=== PATIENT | female | born 1980 | race Asian ===

== ENCOUNTER 2018-08-11 06:40 | Day surgery (SDC) | payer OTHER ==
[2018-07-28 14:28] VITALS: BMI 22.3
--- NOTE | 2018-08-05 09:03 | HP ---
Admitting History and Physical - Primary Care Physician PCP: Frederick Shanks - Admission Chief Complaint: Right breast cancer History of Present Illness: 38 year old premenapausal female with screening mammogram showing dense breast tissue . follow up US showed 4mm hypoechoic nodule in right breast at 1:00 3 cm FN. 06/2018 Right breast US core bx revealed ER/SD+/HER2 -, invasive ductal carcinoma. Breast MRI showed right known breast cancer ,no adenopathy and an enhancement probably benign birad 3,complex cyst on targeted US. , left breast negative . Genetic test negative. History Source: Patient Limitations to Obtaining History: No Limitations - Past Medical History ...LMP: 07/01/18 ...: No - Past Surgical History Past Surgical History: Yes: None, Tubal Ligation (2014) - Advance Directives Advance Directives: Yes: Health Care Proxy - Smoking History Smoking history: Former smoker Have you smoked in the past 12 months: No If you are a former smoker, when did you quit?: MANY YEARS AGO - Alcohol/Substance Use Hx Alcohol Use: Yes (RARELY) - Social History History of Recent Travel: No Home Medications - Allergies Allergies/Adverse Reactions: Allergies Allergy/AdvReac Type Severity Reaction Status Date / Time asparagus Allergy Severe ANAPHYLACTI Verified 07/28/18 14:18 C No Known Drug Allergies Allergy Verified 09/19/13 11:56 - Home Medications Home Medications: Ambulatory Orders NK [No Known Home Medication] 07/28/18 Family Disease History - Family Disease History Family Disease History: CA: Father (prostate ca 68) Physical Examination Constitutional: Yes: Well Nourished Breast(s): Yes: Other (diffusely nodular and dense no palpable masses or adenopathy Right breast post bx changes) Problem List - Problems (1) Breast cancer, right breast Code(s): C50.911 - MALIGNANT NEOPLASM OF UNSP SITE OF RIGHT FEMALE BREAST Qualifiers: Breast location: upper inner quadrant of breast Estrogen receptor status: positive Patient sex: female Qualified Code(s): C50.211 - Malignant neoplasm of upper-inner quadrant of right female breast; Z17.0 - Estrogen receptor positive status [ER+] Assessment/Plan Right breast wide excision mammogram needle localization, lymphoscintogram snetenl node biopsy possible axillary dissection
[2018-08-11] MEDS ORDERED: MIDAZOLAM HCL 2 MG/2 ML SINGLE DOSE VIAL ONE (11:40)
[2018-08-11] MEDS ORDERED: PROPOFOL 20 ML ONE (11:40)
[2018-08-11] MEDS ORDERED: ISOSULFAN BLUE 10 MG/ML VIAL SQ ONE (11:56)
[2018-08-11] MEDS ORDERED: BUPIVACAINE HCL/PF 2.5 MG/ML - 30 ML VIAL IJ ONE (11:56)
[2018-08-11] MEDS ORDERED: ONDANSETRON 4 MG/2 ML VIAL ONE ×2 (12:25→13:17)
[2018-08-11] MEDS ORDERED: ceFAZolin SODIUM 1 GM VIAL ONE (12:25)
[2018-08-11] MEDS ORDERED: DEXAMETHASONE SOD PHOSPHATE 4 MG/1 ML VIAL ONE (12:25)
[2018-08-11] MEDS ORDERED: KETOROLAC TROMETHAMINE 30 MG/1 ML VIAL ONE (12:49)
[2018-08-11] MEDS ORDERED: BUPIVACAINE HCL/PF 0.25% (2.5MG/ML) 10 ML VIAL IJ ONE (13:15)
[2018-08-11] MEDS ORDERED: GUM MASTIC/STORAX/MSAL/ALCOHOL 1 DRP DROPSBTL MC ONE (13:30)
[2018-08-11] MEDS ORDERED: oxyCODONE HCL 5 MG TABLET PO PRN (13:46)
[2018-08-11] MEDS ORDERED: ONDANSETRON 4 MG/2 ML VIAL IVPUSH PRN ×2 (13:46→13:47)
[2018-08-11] MEDS ORDERED: KETOROLAC TROMETHAMINE 30 MG/1 ML VIAL IVPUSH PRN (13:47)
[2018-08-11] MEDS ORDERED: LACTATED RINGERS SOLUTION 1,000 ML IV SCH (14:00)
[2018-08-11] MEDS ORDERED: DEXTROSE 5%-0.45% SALINE 1,000 ML IV SCH (14:00)
[2018-08-11 14:01] VITALS: TEMP 98.2
[2018-08-11 15:36] VITALS: PULSE 62
[2018-08-11 16:22] VITALS: BP 111/64
--- NOTE | 2018-08-11 21:21 | OP ---
DATE OF OPERATION: 08/11/2018 PREOPERATIVE DIAGNOSIS: Right breast cancer. POSTOPERATIVE DIAGNOSIS: Right breast cancer. PROCEDURE: Right mammographically localized partial mastectomy with complex tissue transfer and sentinel node biopsy. ANESTHESIA: General intubated. ATTENDING SURGEON: Johnny Cardenas MD RETAIL MERCHANDISING SPECIALIST: RUFUS Landeros ESTIMATED BLOOD LOSS: Minimal. COMPLICATIONS: None. DESCRIPTION OF PROCEDURE: The patient was made aware of the risks and benefits of the procedure and consented. She was placed in a supine position after going to Radiology where a needle was placed next to the index lesion as well as nuclear medicine where radioactive tracer was placed into the right tumoral tissue. After general anesthesia was induced, the patient was intubated. Then 2.5 mL of 1% Isosulfan Blue was locally infiltrated into the peritumoral tissues. The operative site was prepped and draped in the usual sterile fashion. Waiting approximately 10 minutes with gently manual compression, a curvilinear incision was made in the right axilla. Using blunt and sharp dissection, tissues were dissected downward. A cluster of blue and hot lymph nodes were identified and surgically excised and submitted to Pathology. Interrogation of the axilla revealed no suspicious nodes and no palpable nodes. The wound was then closed with deep 3-0 Vicryl followed by a running subcuticular 4-0 Monocryl. The breast was then approached. A periareolar incision was then made using electrocautery. Thick skin flaps were raised to the needle. The needle was drawn through the puncture site and a wire through the bone. Tissues around the wire were then sharply excised and submitted with a short suture superior, long suture lateral. Specimen radiograph confirmed the presence of the indexed lesion. The specimen was then submitted to Pathology. Additional segments were taken deep anterior, medial, lateral, superior, inferior with clips at the new margin. The wound was copiously irrigated with normal saline. Hemostasis maintained by electrocautery. Using electrocautery, the breast tissue was taken off the pectoralis muscle and approximately 6-8 cm in each direction rotated into the defect. This was then closed with interrupted [id number] sutures of 3-0 Vicryl closing the defect. The wound was then closed with deep 3-0 Vicryl followed by a running subcuticular 4-0 Monocryl. The surgical areas were then injected with 0.5% bupivacaine. The incisions were then dressed with Steri-Strips, sterile dressing, and a compression bra. The patient having tolerated the procedure well was transferred to the recovery room in excellent condition. JOHNNY MIN M.D. [id number]
--- NOTE | 2018-08-17 10:01 | PATH ---
Surgical Pathology Report Patient Name: TL WEEKS [facility]. Rec. #: [id number] /Age/Gender: 1980 (Age: 38) / F Account: [id number] [facility] Taken: 08/11/2018 Received: 08/11/2018 Reported: 08/17/2018 Physicians: Frederick Shanks M.D. Specimen(s) Received A: RIGHT AXILLARY SENTINEL NODES B: RIGHT BREAST WIDE EXCISION C: RIGHT BREAST ANTERIOR MARGIN D: RIGHT BREAST MEDIAL MARGIN E: RIGHT BREAST LATERAL MARGIN F: RIGHT BREAST SUPERIOR MARGIN G: RIGHT BREAST INFERIOR MARGIN Clinical History Right breast CA Final Diagnosis A. LYMPH NODES, RIGHT AXILLARY SENTINEL, EXCISION: TWO LYMPH NODES, NEGATIVE FOR METASTATIC CARCINOMA (0/2). B. BREAST, RIGHT, WIDE EXCISION: INVASIVE DUCTAL CARCINOMA, MODERATELY DIFFERENTIATED WITH LOBULAR GROWTH FEATURES (TUBULE SCORE: 3/3, NUCLEAR GRADE: 2/3, MITOTIC SCORE: 1/3, TOTAL SCORE: 6/9; ANGELIQUE GRADE 2). (SEE NOTE) INVASIVE CARCINOMA MEASURES 6 MM IN GREATEST DIMENSION, MICROSCOPICALLY. FOCAL DUCTAL CARCINOMA IN SITU (DCIS), SOLID TYPE, LOW NUCLEAR GRADE. INVASIVE CARCINOMA AND DCIS ARE CLOSE TO (< 1MM) THE INFERIOR MARGIN. SEE SPECIMENS C-G FOR FINAL MARGINS. NO LYMPHOVASCULAR INVASION IS IDENTIFIED. PRIOR BIOPSY SITE CHANGES ARE PRESENT. PATHOLOGIC STAGE (pTNM): pT1b pN0. SEE ALSO INVASIVE CARCINOMA CASE SUMMARY BELOW. Note: The carcinoma shows strong membranous positivity for E-cadherin (performed at [facility], [place], [place]; [id number]) which supports ductal phenotype. C. BREAST, RIGHT, ANTERIOR MARGIN, EXCISION: BENIGN BREAST TISSUE. D. BREAST, RIGHT, MEDIAL MARGIN, EXCISION: BENIGN BREAST TISSUE. E. BREAST, RIGHT, LATERAL MARGIN, EXCISION: FOCAL ATYPICAL DUCTAL HYPERPLASIA (ADH). F. BREAST, RIGHT, SUPERIOR MARGIN, EXCISION: BENIGN BREAST TISSUE. G. BREAST, RIGHT, INFERIOR MARGIN, EXCISION: BENIGN BREAST TISSUE. Comments Breast Invasive Carcinoma: Surgical Pathology Case Summary (Based on AJCC TNM 8 th edition) Procedure _X_ Excision (less than total mastectomy) Specimen Laterality _X_ Right Tumor Size _X_ Greatest dimension of largest invasive focus: 6 mm Histologic Type _X_ Invasive carcinoma with lobular features Histologic Grade (Angelique Histologic Score) Glandular (Acinar)/Tubular Differentiation _X_ Score 3 (<10% of tumor area forming glandular/tubular structures) Nuclear Pleomorphism _X_ Score 2 Mitotic Rate _X_ Score 1 Overall Grade _X_ Grade 2 (scores of 6 or 7) Tumor Focality _X_ Single focus of invasive carcinoma Ductal Carcinoma In Situ (DCIS) _X_ DCIS is present in specimen _X_ Negative for extensive intraductal component (EIC) Margins Invasive Carcinoma Margins _X_ Uninvolved by invasive carcinoma Distance from closest margin (millimeters): < 1 mm from inferior margin in wide excision B. Final inferior margin G is negative for carcinoma. DCIS Margins _X_ Uninvolved by DCIS Distance from closest margin (millimeters): < 1 mm from inferior margin in wide excision B. Final inferior margin G is negative for DCIS. Regional Lymph Nodes Number of Lymph Nodes with Macrometastases (>2 mm): 0 Number of Lymph Nodes with Micrometastases (>0.2 mm to 2 mm and/or >200 cells):0 Number of Lymph Nodes with Isolated Tumor Cells (=0.2 mm and =200 cells):0 Number of Lymph Nodes Examined: 2 Number of [place] Nodes Examined : 2 Treatment Effect _X_ No known presurgical therapy Lymphovascular Invasion _X_ Not identified Pathologic Stage Classification (pTNM, AJCC 8th Edition) Primary Tumor (Invasive Carcinoma) (pT) _X_ pT1b: Tumor >5 mm but =10 mm in greatest dimension Regional Lymph Nodes (pN) Category (pN) _X_ pN0 (sn): No regional lymph node metastasis identified or ITCs only Biomarker Studies Results of ER, KS, Her2 (IHC) & Ki-67 studies performed on this specimen (block B1) at [place], [place] ( [id number]) are as follows: ER (clone [id number] mouse monoclonal antibody by [employer]) : >95 % nuclear staining with strong intensity (Positive). KS (clone16 mouse monoclonal antibody by [employer]): 90 % nuclear staining with strong intensity (Positive). Her2 IHC (EP3 from [employer], formerly known as [id number], using [employer] Polymer Refine detection kit): 0 (Negative). Ki67: ~10% (low proliferative index). Positive and negative controls (internal if applicable) show appropriate results. Formalin fixation and cold ischemic times are within current ASCO/CAP recommendations for ER, KS and Her2 testing. Electronically Signed Izabela Gay M.D. Gross Description A. Received in formalin labeled "right axillary sentinel nodes," are 2 lymph nodes measuring 0.3 and 2.5 cm in greatest dimension. The larger lymph node is bisected and the specimen is entirely submitted in 3 cassettes as follows: 1-one whole lymph node; 2-3-one bisected lymph node. B. Received in formalin, labeled "right breast wide excision," is a 3.9 x 3.0 x 2.1 cm. galvan-yellow, irregular, portion of fibroadipose tissue with a needle localization wire present. There is a short suture marking the superior aspect and a long suture marking the lateral aspect, per the surgeon. There is no skin present. The specimen is inked as follows: superior and lateral blue; inferior green; medial yellow; anterior red; deep black. The specimen is serially sectioned from lateral to medial. Sectioning reveals a 0.7 x 0.5 x 0.5 cm galvan, ill-defined, firm mass at 0.1 cm from the inferior margin and 0.3 cm from the deep margin. Button Breaker Operator sections are submitted in 5 cassettes as follows: 1-full-face section of mass with superior, inferior, anterior and deep margins; [id number] surrounding mass, each with superior, inferior, anterior and deep margins; 4-lateral margin; 5-medial margin. Time to formalin fixation: 18 minutes Total formalin fixation time: Approximately 29 hours. C. Received in formalin labeled "right breast anterior margin," is a 3.0 x 2.1 x 1.0 cm portion of fibroadipose tissue with a clip marking the new margin, per the surgeon. The new margin is inked blue and the specimen is serially sectioned. The specimen is entirely and sequentially submitted in 5 cassettes. D. Received in formalin labeled "right breast medial margin," is a 2.8 x 2.1 x 0.6 cm portion of fibroadipose tissue with a clip marking the new margin, per the surgeon. The new margin is inked blue and the specimen is serially sectioned. The specimen is entirely submitted in 3 cassettes. E. Received in formalin labeled "right breast lateral margin," is a 2.3 x 1.6 x 1.0 cm portion of fibroadipose tissue with a clip marking the new margin, per the surgeon. The new margin is inked blue and the specimen is serially sectioned. The specimen is entirely submitted in 3 cassettes. F. Received in formalin labeled "right breast superior margin," is a 2.5 x 2.0 x 0.7 cm portion of fibroadipose tissue with a clip marking the new margin, per the surgeon. The new margin is inked blue and the specimen is serially sectioned. The specimen is entirely admitted in 3 cassettes. G. Received in formalin labeled "right breast inferior margin," is a 3.3 x 2.6 x 1.2 cm portion of fibroadipose tissue with a clip marking the new margin, per the surgeon. The new margin is inked blue and the specimen is serially sectioned. The specimen is entirely and sequentially submitted in 6 cassettes. 08/12/2018 [facility]08/12/2018
== END 2018-08-11 16:25 | disposition home or self-care (01) ==
LOC: FASU 06:40
PROVIDERS: ATTEND Surgery Surgical Oncology
PROC: 0HBT0ZZ Excision of Right Breast, Open Approach (ICD-10-PCS; principal; 2018-08-11 12:33)
PROC: 0HRT07Z Replacement of Right Breast with Autologous Tissue Substitute, Open Approach (ICD-10-PCS; 2018-08-11 12:33)
DX: C50.211 Malignant neoplasm of upper-inner quadrant of right female breast (principal); Z17.0 Estrogen receptor positive status [ER+]
CPT/HCPCS: 19281; 78195-TC; 84703; 88307-TC; 94760; A9541

== ENCOUNTER 2021-05-17 04:32 | Day surgery (SDC) | payer BC, OTHER ==
[2021-05-17 08:26] VITALS: BMI 23.8
[2021-05-17 09:38] VITALS: TEMP 97
[2021-05-17 12:02] VITALS: BP 103/58; PULSE 73
== END 2021-05-17 10:35 | disposition home or self-care (01) ==
LOC: JASU-ENDO 04:32
PROVIDERS: ATTEND Internal Medicine Gastroenterology
PROC: 0DBL8ZX Excision of Transverse Colon, Via Natural or Artificial Opening Endoscopic, Diagnostic (ICD-10-PCS; 2021-05-17)
PROC: 0DBM8ZX Excision of Descending Colon, Via Natural or Artificial Opening Endoscopic, Diagnostic (ICD-10-PCS; principal; 2021-05-17 09:00)
DX: Z12.11 Encounter for screening for malignant neoplasm of colon (principal); D12.4 Benign neoplasm of descending colon; D12.3 Benign neoplasm of transverse colon; K64.8 Other hemorrhoids; Z80.0 Family history of malignant neoplasm of digestive organs
CPT/HCPCS: 81025; 88305-TC